=== PATIENT | male | born 1940 | race Caucasian/White ===

== ENCOUNTER 2023-01-13 08:49 | Observation (INO) ==
[2023-01-13 09:13] LABS: ABS Basophils 0.1 10^3/uL (0.0-0.1); ABS Eosinophils 0.1 10^3/uL (0.0-0.5); ABS Lymphocytes 1.1 10^3/uL (1.0-4.8); ABS Monocytes 0.7 10^3/uL (0.0-1.1); ABS Neutrophils 7.3 10^3/uL (1.5-7.6); Eosinophil % 0.5 %; Lymphocyte % 12.2 %; Mean Corpuscular Hemoglobin 31.6 pg (27-33); Mean Corpuscular Hgb Conc 34.2 g/dL (31-36); Mean Corpuscular Volume 92.6 fL (80-97); Platelet Count 278 10^3/uL (150-450); Red Cell Distribution Width 14.7 % (12-17); White Blood Count 9.3 10^3/uL (3.6-10.2)
[2023-01-13 09:24] LABS: INR 4.09 (0.83-1.13)
[2023-01-13 09:44] LABS: Albumin 4.2 g/dL (3.2-5.2); Albumin/Globulin Ratio 1.4 (1-3); Calcium 9.1 mg/dL (8.6-10.3); Creatinine, Serum 1.15 mg/dL (0.67-1.17); Globulin 3.1 g/dL (2-4); Magnesium 1.9 mg/dL (1.9-2.7); Potassium 4.1 mmol/L (3.5-5.0); Total Bilirubin 0.6 mg/dL (0.2-1.0); Total Protein 7.3 g/dL (6.4-8.9); eGFR CKD-EPI 63.5 (>60)
[2023-01-13] MEDS ORDERED: Iohexol 350 (CONTRAST) 500 ML MDV IV ONE (10:33)
[2023-01-13 10:56] LABS: High Sensitivity Troponin 1 Hr 28 pg/mL (<20)
[2023-01-13 11:17] LABS: TSH Ultra Thyroid Stim Horm 1.4 mcIU/mL (0.34-5.60)
[2023-01-13] MEDS ORDERED: Etomidate 20 mg/10 ml 2 MG/ML 10 ml VIAL IV ONE (12:19)
[2023-01-13] MEDS ORDERED: Warfarin per PHARMACY **NOTE FOLLOW UP SCH (14:00)
[2023-01-13 15:04] LABS: Ferritin 24.9 ng/mL (24-336)
[2023-01-13] MEDS ORDERED: Iron Sucrose 200 MG in NS 0.9% 100 ml BAG 100 ML IVPB ONE (15:19)
[2023-01-13 17:02] LABS: Urine Appearance Clear; Urine Bilirubin Negative (Negative); Urine Blood Negative (Negative); Urine Color Yellow; Urine Glucose Negative (Negative); Urine Ketones Trace (Negative); Urine Nitrite Negative (Negative); Urine Protein Negative (Negative); Urine Specific Gravity 1.047 (1.002-1.030); Urine Urobilinogen Negative (Negative)
[2023-01-13 17:38] LABS: Urine Bacteria Absent (Absent); Urine Red Blood Cell 1+(3-5/hpf) (Absent); Urine White Blood Cell 2+(11-20/hpf) (Absent)
[2023-01-14 06:27] LABS: INR 4.51 (0.83-1.13)
[2023-01-14 06:36] LABS: Calcium 8.5 mg/dL (8.6-10.3); Creatinine, Serum 0.94 mg/dL (0.67-1.17); Magnesium 1.8 mg/dL (1.9-2.7); eGFR CKD-EPI 80.9 (>60)
[2023-01-14] MEDS ORDERED: Magnesium Sulfate 2 gm BAG 2 GM/50 ML BAG IVPB ONE (07:20)
[2023-01-14] MEDS ORDERED: Iron Sucrose 200 MG in NS 0.9% 100 ml BAG 100 ML IVPB ONE (11:00)
[2023-01-14 11:40] VITALS: BP 121/66
== END 2023-01-14 13:45 | disposition home or self-care (01) ==
LOC: ED 08:49 → EDHOLD 08:49 → SUATTDRO 13:09 → MEDTELE 16:20
PROVIDERS: ADMIT Student in an Organized Health Care Education/Training Program; ATTEND Internal Medicine